=== PATIENT | female | born 1945 | race Caucasian/White ===

== ENCOUNTER 2016-10-31 09:00 | Outpatient (RCR) | payer MEDICARE ==
--- OUTSIDE RECORDS SUMMARY | 2016-08-05 10:16 | XMS REPORT | Continuity of Care Document ---
Author Author [facility] Organization [facility] Address Unknown Phone Unavailable Allergies Active Description Code Type Severity Reaction Onset Reported/Identified Relationship to Patient Clinical Status Yes No Known Drug Allergies [id number] Drug Allergy Unknown N/ A 11/24/2014 Medications Problems Date Dx Coded Attending Type Code Diagnosis Diagnosed By 12/15/2014 NWAGWU, ISIDORE O IT DESKTOP SUPPORT TECHNICIAN Ot 272.4 12/15/2014 NWAGWU, ISIDORE O IT DESKTOP SUPPORT TECHNICIAN Ot 401.9 12/15/2014 NWAGWU, ISIDORE O IT DESKTOP SUPPORT TECHNICIAN Ot 786.09 12/22/2014 NWAGWU, ISIDORE O IT DESKTOP SUPPORT TECHNICIAN Ot 272.4 12/22/2014 NWAGWU, ISIDORE O IT DESKTOP SUPPORT TECHNICIAN Ot 401.9 12/22/2014 NWAGWU, ISIDORE O IT DESKTOP SUPPORT TECHNICIAN Ot 786.09 07/20/2015 NWAGWU, ISIDORE O IT DESKTOP SUPPORT TECHNICIAN Ot 272.4 07/20/2015 NWAGWU, ISIDORE O IT DESKTOP SUPPORT TECHNICIAN Ot 401.9 07/20/2015 NWAGWU, ISIDORE O IT DESKTOP SUPPORT TECHNICIAN Ot 786.09 07/21/2015 DUSTIN CARRERO E IT DESKTOP SUPPORT TECHNICIAN Ot G47.33 07/21/2015 DUSTIN CARRERO IT DESKTOP SUPPORT TECHNICIAN Ot G47.61 08/09/2015 DUSTIN CARRERO E IT DESKTOP SUPPORT TECHNICIAN Ot G47.33 08/17/2015 DUSTIN CARRERO IT DESKTOP SUPPORT TECHNICIAN Ot G47.33 08/19/2015 DUSTIN CARRERO IT DESKTOP SUPPORT TECHNICIAN Ot G47.33 Procedures Results Encounters ACCT No. Visit Date/Time Discharge Status Pt. Type Provider Facility Loc./Unit Complaint [id number] 08/08/2015 21:30:00 2015 06:10:00 DIS Outpatient DUSTIN CARRERO IT DESKTOP SUPPORT TECHNICIAN [facility] SLEEP [id number] 07/20/2015 20:20:00 2015 07:00:00 DIS Outpatient DUSTIN CARRERO APRN [facility] SLEEP [id number] 11/24/2014 11:52:00 2014 23:59:59 CLS Outpatient RILEY WILSON APRN [facility] CARD
== END 2016-11-03 | disposition home or self-care (01) ==
LOC: PULM 09:00
PROVIDERS: ATTEND Nurse Practitioner Family
DX: R94.2 Abnormal results of pulmonary function studies (principal); R06.02 Shortness of breath
CPT/HCPCS: 94799; 99211

== ENCOUNTER 2016-11-12 11:33 | Outpatient (RCR) | payer MEDICARE | END 2017-02-10 | disposition home or self-care (01) | LOC: PULM 11:33 | PROVIDERS: ATTEND Nurse Practitioner Family | DX: R94.2 Abnormal results of pulmonary function studies (principal); R06.02 Shortness of breath ==

== ENCOUNTER 2017-12-10 03:08 | Emergency (ER) | payer MEDICARE ==
[~2017-12-10] VITALS: Ht 154.9 cm; Wt 84.4 kg
[2017-12-10] MEDS ORDERED: OMEP20CA12 (03:43)
[2017-12-10] MEDS ORDERED: LEVO5TAB12 (03:43)
[2017-12-10] MEDS ORDERED: CHLO473M (03:43)
[2017-12-10] MEDS ORDERED: MONT10TA24 (03:43)
[2017-12-10] MEDS ORDERED: BUPR150T9 (03:43)
[2017-12-10] MEDS ORDERED: LEVO50TA6 (03:43)
[2017-12-10] MEDS ORDERED: SIMV20TA3 (03:43)
[2017-12-10] MEDS ORDERED: UMEC62.5 (03:43)
[2017-12-10] MEDS ORDERED: FLUT1AER (03:43)
[2017-12-10] MEDS ORDERED: FLUT16SP22 (03:43)
--- NOTE | 2017-12-10 03:45 | ED General ---
General Chief Complaint: Nasal Problems Stated Complaint: NOSE BLEED Nursing Triage Note: Pt reports nosebleed beginning at 0200. This is 2nd nosebleed this week. Pt has bleeding controlled with ice posterior neck and holding pressure to nose. Pt hx HTN and did not take her meds Friday. Nursing Sepsis Screen: No Definite Risk Source of Information: Patient Exam Limitations: No Limitations History of Present Illness Date Seen by Provider: Dec 10, 2017 Time Seen by Provider: 03:19 Initial Comments This 72-year-old woman presents to the emergency room with complaints of right- sided nosebleed since 02:00. She had a nosebleed earlier in the week as well. Patient denies any anticoagulant use but she does take a baby aspirin daily. She also uses CPAP which is humidified. She has been applying pressure and ice. Bleeding actually stopped by the time of my assessment. Patient does admit she has not taken her blood pressure medications for the past 2 days and is presently hypertensive. Allergies and Home Medications Allergies Coded Allergies: amoxicillin (Verified Adverse Reaction, Unknown, 12/10/17) clavulanic acid (Verified Adverse Reaction, Unknown, 12/10/17) Uncoded Allergies: PENICILLIN (Adverse Reaction, Unknown, 12/10/17) SULFA (Adverse Reaction, Unknown, 12/10/17) TETANUS (Adverse Reaction, Unknown, 12/10/17) Patient Home Medication List Home Medication List Reviewed: Yes Review of Systems Constitutional: no symptoms reported EENTM: see HPI Respiratory: no symptoms reported Cardiovascular: see HPI Gastrointestinal: no symptoms reported Genitourinary: no symptoms reported : No Musculoskeletal: no symptoms reported Skin: no symptoms reported Psychiatric/Neurological: No Symptoms Reported Hematologic/Lymphatic: No Symptoms Reported Past Vexnegh-Abcbkq-Vnnnmq Hx Past Med/Social Hx: Reviewed and Corrections made Patient Social History Alcohol Use: Denies Use Recreational Drug Use: No Smoking Status: Unknown if Ever Smoked Former Smoker, Quit: Dec 30, 2013 2nd Hand Smoke Exposure: No Recent Foreign Travel: No Contact w/Someone Who Travel: No Recent Infectious Disease Expo: No Recent Hopitalizations: No Seasonal Allergies Seasonal Allergies: Yes Past Medical History Surgeries: Yes Appendectomy, Gallbladder, Thyroidectomy Respiratory: Yes Sleep Apnea, COPD Cardiac: Yes High Cholesterol, Hypertension Neurological: No : No Reproductive Disorders: No Genitourinary: No Gastrointestinal: No Musculoskeletal: No Endocrine: Yes Hypothyroidsim Cancer: No Psychosocial: Yes Anxiety, Depression Physical Exam Vital Signs Vital Signs - First Documented 12/10/17 03:19 Temp 97.5 Pulse 75 Resp 20 B/P (MAP) 176/95 (122) Pulse Ox 95 O2 Delivery Room Air Capillary Refill : Less Than 3 Seconds Height, Weight, BMI Height: 5'1.00" Weight: 186lbs. oz. 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 Decision time for Depature: 03:40 Referrals: NICCI RAZO MD (PCP/Family) Primary Care Physician Patient Instructions: Nosebleeds (DC) Add. Discharge Instructions: If bleeding returns squirt 4 squirts of Afrin (oxymetazoline) into each nostril and apply direct pressure for 20 minutes. If this does not resolve bleeding, return to the emergency room. Consider having Dr. Zavala evaluate your nose to determine if cautery is appropriate. Take your blood pressure medication immediately upon returning home. Hold aspirin for 3 or 4 days as well. All discharge instructions reviewed with patient and/or family. Voiced understanding. Copy Copies To 1: NICCI RAZO MD, JOSHUA T MD Dec 10, 2017 03:45
[2017-12-10 03:55] VITALS: BP 144/104
== END 2017-12-10 03:55 | disposition home or self-care (01) ==
LOC: EDUNIT# 03:08 → ER 03:09
DX: R04.0 Epistaxis (principal); I16.0 Hypertensive urgency; I10 Essential (primary) hypertension; G47.30 Sleep apnea, unspecified; J44.9 Chronic obstructive pulmonary disease, unspecified; E78.00 Pure hypercholesterolemia, unspecified; E03.9 Hypothyroidism, unspecified; F41.9 Anxiety disorder, unspecified; F32.9 Major depressive disorder, single episode, unspecified; Z88.0 Allergy status to penicillin; Z88.8 Allergy status to other drugs, medicaments and biological substances; Z88.2 Allergy status to sulfonamides; Z88.7 Allergy status to serum and vaccine; Z79.82 Long term (current) use of aspirin; Z91.14 Patient's other noncompliance with medication regimen; Z87.891 Personal history of nicotine dependence; Z90.89 Acquired absence of other organs
CPT/HCPCS: 99283

== ENCOUNTER 2017-12-25 10:00 | Outpatient (RCR) | payer MEDICARE ==
[2017-09-29 10:41] VITALS: BP 133/60
[2017-12-23 10:05] VITALS: BP 122/40
[2017-12-23 10:50] VITALS: BP 130/40
[~2017-12-25] VITALS: Ht 154.9 cm; Wt 87.1 kg
[~2017-12-25 10:00] MED LIST: BUPR150T9; CHLO473M; FLUT16SP22; FLUT1AER; LEVO50TA6; LEVO5TAB12; MONT10TA24; OMEP20CA12; SIMV20TA3; UMEC62.5
[2017-12-25 10:10] VITALS: BP 148/50
[2017-12-25 11:10] VITALS: BP 150/80
== END 2017-12-28 | disposition home or self-care (01) ==
LOC: PULM 10:00
PROVIDERS: ATTEND Nurse Practitioner Family
DX: R94.2 Abnormal results of pulmonary function studies (principal); R06.09 Other forms of dyspnea

== ENCOUNTER → 2018-02-03 | Outpatient (CLI) | payer MEDICARE ==
[~2018-02-03] MED LIST changes: +CATHETER FLUSH 10 ML SYR IV PRN; +REGADENOSON 0.4 MG/5 ML SYR (LEXISCAN) IV ONE
[2018-02-03 09:20] VITALS: BP 137/89
[2018-02-03 09:22] VITALS: BP 141/65
--- NOTE | 2018-02-04 09:31 | STRESS TEST ---
DATE OF SERVICE: 02/03/2018 RESTING AND POST REGADENOSON TECHNETIUM-99M TETROFOSMIN SPECT CT IMAGING ORDERING PHYSICIAN: Patti Smith APRN. PRIMARY PHYSICIAN: Dr. Martinez. CLINICAL DIAGNOSIS: Shortness of breath. Baseline images were carried out after injection of 10.92 mCi of technetium-99m Tetrofosmin. This was followed by 0.4 mg regadenoson and 31.7 mCi of technetium-99m Tetrofosmin for stress imaging. The electrocardiogram showed sinus rhythm. There was baseline artifact. There did not appear to be significant electrocardiographic changes. She noted some shortness of breath and mild anxiety following regadenoson infusion, which resolved in a few minutes. Review of images at rest and following stress does not indicate any significant perfusion defects consistent with significant myocardial ischemia or infarction. Gated images show normal global left ventricular systolic function, normal regional wall motion. Left ventricular ejection fraction is calculated to be 83%. CONCLUSIONS: 1. No evidence of significant myocardial ischemia or infarction on this study. 2. Normal regional wall motion. 3. Normal to hyperdynamic left ventricular systolic function with a calculated ejection fraction of 83%. Job ID: [id number] DocumentID: [id number] Dictated Date: 02/04/2018 09:09:57 Surg Physician Asst Date: 02/04/2018 09:30:00 Dictated By: GERARDO ALONZO MD, MA, FACP, FACC,
== END ==
LOC: CARD 07:19
PROVIDERS: ATTEND Nurse Practitioner Family
DX: R06.09 Other forms of dyspnea (principal); E78.5 Hyperlipidemia, unspecified; I10 Essential (primary) hypertension; G47.33 Obstructive sleep apnea (adult) (pediatric); J43.9 Emphysema, unspecified
CPT/HCPCS: 78452; 93017

== ENCOUNTER → 2018-03-20 | Outpatient (CLI) | payer MEDICARE ==
[~2018-03-20] MED LIST changes: -CATHETER FLUSH 10 ML SYR IV PRN; -REGADENOSON 0.4 MG/5 ML SYR (LEXISCAN) IV ONE
== END ==
LOC: CARD 08:42
PROVIDERS: ATTEND Nurse Practitioner Family
DX: I10 Essential (primary) hypertension (principal); R06.09 Other forms of dyspnea; E78.5 Hyperlipidemia, unspecified; G47.33 Obstructive sleep apnea (adult) (pediatric); J43.9 Emphysema, unspecified
CPT/HCPCS: 93306

== ENCOUNTER 2018-04-02 10:00 | Outpatient (RCR) | payer MEDICARE ==
[2018-01-01 10:00] VITALS: BP 106/58
[2018-01-01 11:00] VITALS: BP 120/58
[2018-01-06 10:10] VITALS: BP 140/64
[2018-01-06 10:55] VITALS: BP 120/68
[2018-01-08 10:00] VITALS: BP 170/65
[2018-01-08 11:00] VITALS: BP 114/76
[2018-01-15 10:13] VITALS: BP 160/78
[2018-01-15 11:14] VITALS: BP 130/80
[2018-01-20 10:30] VITALS: BP 147/70
[2018-01-20 10:55] VITALS: BP 130/74
[2018-01-22 10:17] VITALS: BP 140/60
[2018-01-22 11:05] VITALS: BP 140/60
[2018-01-27 10:35] VITALS: BP 120/58
[2018-01-27 11:05] VITALS: BP 140/60
[2018-01-29 10:18] VITALS: BP 160/80
[2018-01-29 11:15] VITALS: BP 140/60
[2018-02-10 10:18] VITALS: BP 163/69
[2018-02-10 10:20] VITALS: BP 163/40
[2018-02-10 11:13] VITALS: BP 122/40
[2018-02-12 10:18] VITALS: BP 131/80
[2018-02-12 11:20] VITALS: BP 141/56
[2018-02-17 10:10] VITALS: BP 130/40
[2018-02-17 11:20] VITALS: BP 130/40
[2018-02-19 10:05] VITALS: BP 150/58
[2018-02-19 11:00] VITALS: BP 120/70
[2018-02-24 10:13] VITALS: BP 140/70
[2018-02-24 11:03] VITALS: BP 136/52
[2018-02-26 09:50] VITALS: BP 120/60
[2018-02-26 11:00] VITALS: BP 138/62
[2018-03-10 10:00] VITALS: BP 150/60
[2018-03-10 10:56] VITALS: BP 115/40
[2018-03-12 10:15] VITALS: BP 150/70
[2018-03-12 11:06] VITALS: BP 140/40
[2018-03-19 10:00] VITALS: BP 135/70
[2018-03-19 11:13] VITALS: BP 148/82
[2018-03-24 10:10] VITALS: BP 128/72
[2018-03-24 10:18] VITALS: BP 138/70
[2018-03-26 11:10] VITALS: BP 128/82
[2018-03-31 10:30] VITALS: BP 130/70
[2018-03-31 11:25] VITALS: BP 130/70
[2018-04-02 10:10] VITALS: BP 120/80
[2018-04-02 11:13] VITALS: BP 140/70
== END 2018-04-06 | disposition home or self-care (01) ==
LOC: PULM 10:00
PROVIDERS: ATTEND Nurse Practitioner Family
DX: R94.2 Abnormal results of pulmonary function studies (principal); R06.09 Other forms of dyspnea

== ENCOUNTER → 2018-05-14 | Outpatient (CLI) | payer MEDICARE ==
[~2018-05-14] MED LIST changes: +RECEIVED CONTRAST (Hold Metformin) IV SCH
[2018-05-14 15:50] LABS: CREATININE SERUM 1.14 MG/DL (0.60-1.30)
[2018-05-14] MEDS: IOHEXOL 350 MG/ML 100 ML (OMNIPAQUE 350) VIAL IV ONE (16:24)
[2018-05-14] MEDS: NS 100 ML (IVPB) BAG IV ONE (16:25)
[2018-05-14] MEDS: CATHETER FLUSH 10 ML SYR IV PRN (16:25)
--- NOTE | 2018-05-14 17:28 | Diagnostic Imaging Report ---
PROCEDURE: CT angiography of the chest with contrast. TECHNIQUE: Multiple contiguous axial images were obtained through the chest after uneventful bolus administration of intravenous contrast. 2D reconstructed CTA MIP acquisitions were also performed. INDICATION: Dyspnea. Nocturnal hypoxemia. COMPARISON: None. FINDINGS: There is no CT evidence of acute pulmonary embolus to the first subsegmental division of the pulmonary arteries. Heart size is within normal limits. There is no large pericardial effusion. Note is made of mild calcified coronary atherosclerosis and moderate calcified and noncalcified aortic atherosclerosis. Otherwise, thoracic aorta is normal in course and caliber. No pathologically enlarged or morphologically abnormal adenopathy is seen within the mediastinum, vida, nor axilla. Lung windows show mild dependent atelectasis. There is no focal consolidation, large effusion, nor pneumothorax. Note is also made of mild scattered areas of air trapping consistent with background of mild emphysematous disease. Few benign calcified scattered granuloma are noted bilaterally. Otherwise, no suspicious pulmonary nodules or masses are seen. Osseous structures show no lytic or blastic lesions. Age-related degenerative changes of the thoracic spine are noted. There is bilateral thyromegaly. There is suggestion of hypodense nodule posteriorly on the right that measures 1.1 cm in diameter. Included portions of the upper abdomen are unremarkable. IMPRESSION: 1. No acute pulmonary embolus to the first subsegmental division of the pulmonary arteries. 2. No other acute cardiopulmonary process identified. 3. Background of mild emphysematous disease. 4. Calcified aortic and coronary atherosclerosis. 5. Thyromegaly with possible hypodense nodule on the right. Correlation with dedicated thyroid sonogram is recommended and could be performed on a nonemergent basis. Dictated by: Dictated on workstation # [id number]
== END ==
LOC: RAD 15:17
PROVIDERS: ATTEND Nurse Practitioner Family
DX: J43.9 Emphysema, unspecified (principal); I25.10 Atherosclerotic heart disease of native coronary artery without angina pectoris; I70.0 Atherosclerosis of aorta; E01.0 Iodine-deficiency related diffuse (endemic) goiter; G47.33 Obstructive sleep apnea (adult) (pediatric); J30.1 Allergic rhinitis due to pollen; G47.34 Idiopathic sleep related nonobstructive alveolar hypoventilation
CPT/HCPCS: 36415; 71275; 82565; 84520

== ENCOUNTER 2018-06-18 10:00 | Outpatient (RCR) | payer MEDICARE ==
[2018-04-14 10:00] VITALS: BP 143/50
[2018-04-14 11:05] VITALS: BP 167/60
[2018-04-28 10:00] VITALS: BP 120/62
[2018-04-28 11:00] VITALS: BP 128/62
[2018-04-30 10:00] VITALS: BP 140/70
[2018-04-30 11:10] VITALS: BP 122/52
[2018-05-12 10:05] VITALS: BP 145/60
[2018-05-12 11:00] VITALS: BP 150/60
[2018-05-14 10:07] VITALS: BP 140/70
[2018-06-02 10:00] VITALS: BP 130/62
[2018-06-02 11:54] VITALS: BP 127/50
[2018-06-04 10:00] VITALS: BP 137/70
[2018-06-04 11:16] VITALS: BP 140/50
[2018-06-11 10:00] VITALS: BP 150/60
[2018-06-11 11:00] VITALS: BP 120/62
[2018-06-16 10:10] VITALS: BP 124/58
[2018-06-16 11:13] VITALS: BP 128/50
[2018-06-18 10:00] VITALS: BP 160/70
[~2018-06-18 10:00] MED LIST changes: -RECEIVED CONTRAST (Hold Metformin) IV SCH
[2018-06-18 11:00] VITALS: BP 150/58
[2018-06-23 10:10] VITALS: BP 138/81
[2018-06-23 11:15] VITALS: BP 140/80
== END 2018-07-27 | disposition home or self-care (01) ==
LOC: PULM 10:00
PROVIDERS: ATTEND Nurse Practitioner Family
DX: R94.2 Abnormal results of pulmonary function studies (principal); R06.09 Other forms of dyspnea

== ENCOUNTER 2019-01-14 01:03 | Emergency (ER) | payer MEDICARE ==
[~2019-01-14] VITALS: Ht 157.5 cm; Wt 85.7 kg
[~2019-01-14 01:03] MED LIST changes: -OMEP20CA12; +OMEP20CA13
[2019-01-14] MEDS ORDERED: NS IV 1000 ML 1,000 ML IV SCH (01:25)
[2019-01-14] MEDS ORDERED: ONDANSETRON 4 MG/2 ML (SDV) Z0FRAN IVP ONE (01:30)
[2019-01-14] MEDS ORDERED: KETOROLAC 30 MG/ML VIAL IVP ONE (01:30)
[2019-01-14 01:32] LABS: CLARITY,URINE SLIGHTLY CLOUDY; GLUCOSE, URINE (UA) NEGATIVE (NEGATIVE); KETONES,URINE NEGATIVE (NEGATIVE); LEUKOCYTE ESTERASE ,URINE 3+ (NEGATIVE); NITRITE,URINE POSITIVE (NEGATIVE); PH,URINE 6.5 (5-9); PROTEIN,URINE 2+ (NEGATIVE); UROBILINOGEN,URINE 8 MG/DL (NORMAL)
[2019-01-14 01:32] LABS: BASOPHILS % (AUTO) 0 % (0-10); EOSINOPHILS # (AUTO) 0.2 10^3/uL (0.0-0.3); EOSINOPHILS % (AUTO) 2 % (0-10); HEMATOCRIT 41 % (35-52); HEMOGLOBIN 13.4 G/DL (11.5-16.0); LYMPHOCYTES # (AUTO) 1.9 X 10^3 (1.0-4.0); LYMPHOCYTES % (AUTO) 22 % (12-44); MEAN CORPUSCULAR HEMOGLOBIN 31 PG (25-34); MEAN CORPUSCULAR HGB CONC 33 G/DL (32-36); MEAN CORPUSCULAR VOLUME 93 FL (80-99); MEAN PLATELET VOLUME 9.7 FL (7.4-10.4); MONOCYTES # (AUTO) 0.6 X 10^3 (0.0-1.0); MONOCYTES % (AUTO) 7 % (0-12); NEUTROPHILS # (AUTO) 6.2 X 10^3 (1.8-7.8); NEUTROPHILS % (AUTO) 69 % (42-75); PLATELET COUNT 285 10^3/uL (130-400); RED CELL DISTRIBUTION WIDTH 13.5 % (10.0-14.5)
--- NOTE | 2019-01-14 01:32 | ED Abdominal Pain ---
General Stated Complaint: POSS KIDNEY STONE Source of Information: Patient Exam Limitations: No Limitations History of Present Illness Date Seen by Provider: Jan 14, 2019 Time Seen by Provider: 01:17 Initial Comments The patient presents to the ER by private conveyance with her and chief complaint that she's having some superpubic and right flank pain. She has a history of kidney stones. She's not taken anything for the pain tonight. She is having nausea but no vomiting. She's had some chills but no objective fever. Is also having diarrhea starting tonight. Most of her symptoms started 11:00 about 2-1/2 hours prior to arrival. She took AZO for the dysuria. She sees Dr. Razo routinely. She does not history of kidney disease, coronary disease or peptic ulcer disease she's had a colonoscopy before which did not discover anything. She's had 2 C-sections and no other abdominal surgeries. No recent trauma.. She does take allergy medicine, Synthroid and omeprazole. Allergies and Home Medications Allergies Coded Allergies: amoxicillin (Verified Adverse Reaction, Unknown, 12/10/17) clavulanic acid (Verified Adverse Reaction, Unknown, 12/10/17) Uncoded Allergies: PENICILLIN (Adverse Reaction, Unknown, 12/10/17) SULFA (Adverse Reaction, Unknown, 12/10/17) TETANUS (Adverse Reaction, Unknown, 12/10/17) Patient Home Medication List Home Medication List Reviewed: Yes Review of Systems Review of Systems Constitutional: No chills, No diaphoresis EENTM: No Blurred Vision, No Double Vision Respiratory: Denies Cough, Denies Orthopnea Cardiovascular: Denies Chest Pain, Denies Edema Gastrointestinal: See HPI; Denies Abdomen Distended; Abdominal Pain; Denies Constipated; Diarrhea, Nausea, Poor Fluid Intake; Denies Vomiting Genitourinary: Denies Burning, Denies Discharge, Denies Drainage Musculoskeletal: No back pain, No joint pain Past Svzseow-Qholpi-Ppoloo Hx Patient Social History Alcohol Use: Rarely Uses Recreational Drug Use: No Smoking Status: Never a Smoker Former Smoker, Quit: Dec 30, 2013 2nd Hand Smoke Exposure: No Recent Foreign Travel: No Contact w/Someone Who Travel: No Recent Hopitalizations: No Seasonal Allergies Seasonal Allergies: Yes Past Medical History Surgeries: Yes Appendectomy, Gallbladder, Thyroidectomy Respiratory: Yes Sleep Apnea, COPD Cardiac: Yes High Cholesterol, Hypertension Neurological: No Reproductive Disorders: No Genitourinary: No Gastrointestinal: No Musculoskeletal: No Endocrine: Yes Hypothyroidsim Cancer: No Psychosocial: Yes Anxiety, Depression Physical Exam Vital Signs Vital Signs - First Documented 01/14/19 01:09 Temp 99.0 Pulse 76 Resp 17 B/P (MAP) 130/76 (94) Pulse Ox 99 O2 Delivery Room Air Capillary Refill : Height/Weight/BMI Height: 5'1.00" Weight: 198lbs. 0.8oz. 84.208936wr; 35.3 BMI Method:Stated General Appearance: WD/WN, mild distress HEENT: PERRL/EOMI, normal ENT inspection, pharynx normal Neck: non-tender, full range of motion Respiratory: normal breath sounds, no respiratory distress, no accessory muscle use Cardiovascular: normal peripheral pulses, regular rate, rhythm Peripheral Pulses: 2+ Dorsalis Pedis (R), 2+ Left Dors-Pedis (L), 2+ Radial Pulses (R), 2+ Radial Pulses (L) Gastrointestinal: normal bowel sounds, non tender, soft Extremities: normal range of motion, normal capillary refill Back: normal inspection, no CVA tenderness Neurologic/Psychiatric: alert, oriented x 3 Progress/Results/Core Measures Results/Orders Lab Results Laboratory Tests Test 01/14/19 01:15 01/14/19 01:23 Range/Units Urine Color ORANGE Urine Clarity SLIGHTLY CLOUDY Urine pH 6.5 5-9 Urine Specific [place] 1.010 L 1.016-1.022 Urine Protein 2+ H NEGATIVE Urine Glucose (UA) NEGATIVE NEGATIVE Urine Ketones NEGATIVE NEGATIVE Urine Nitrite POSITIVE H NEGATIVE Urine Bilirubin 2+ H NEGATIVE Urine Urobilinogen 8 H NORMAL MG/DL Urine Leukocyte Esterase 3+ H NEGATIVE Urine RBC (Auto) 5+ H NEGATIVE Urine RBC RARE /HPF Urine WBC 25-50 H /HPF Urine Squamous Epithelial Cells 5-10 /HPF Urine Crystals NONE /LPF Urine Bacteria TRACE /HPF Urine Casts NONE /LPF Urine Mucus NEGATIVE /LPF Urine Culture Indicated YES White Blood Count 9.0 4.3-11.0 10^3/uL Red Blood Count 4.37 4.35-5.85 10^6/uL Hemoglobin 13.4 11.5-16.0 G/DL Hematocrit 41 35-52 % Mean Corpuscular Volume 93 80-99 FL Mean Corpuscular Hemoglobin 31 25-34 PG Mean Corpuscular Hemoglobin Concent 33 32-36 G/DL Red Cell Distribution Width 13.5 10.0-14.5 % Platelet Count 285 130-400 10^3/uL Mean Platelet Volume 9.7 7.4-10.4 FL Neutrophils (%) (Auto) 69 42-75 % Lymphocytes (%) (Auto) 22 12-44 % Monocytes (%) (Auto) 7 0-12 % Eosinophils (%) (Auto) 2 0-10 % Basophils (%) (Auto) 0 0-10 % Neutrophils # (Auto) 6.2 1.8-7.8 X 10^3 Lymphocytes # (Auto) 1.9 1.0-4.0 X 10^3 Monocytes # (Auto) 0.6 0.0-1.0 X 10^3 Eosinophils # (Auto) 0.2 0.0-0.3 10^3/uL Basophils # (Auto) 0.0 0.0-0.1 10^3/uL Sodium Level 136 135-145 MMOL/L Potassium Level 3.9 3.6-5.0 MMOL/L Chloride Level 102 98-107 MMOL/L Carbon Dioxide Level 22 21-32 MMOL/L Anion Gap 12 5-14 MMOL/L Blood Urea Nitrogen 16 7-18 MG/DL Creatinine 1.15 0.60-1.30 MG/DL Estimat Glomerular Filtration Rate 46 BUN/Creatinine Ratio 14 Glucose Level 95 70-105 MG/DL Calcium Level 8.9 8.5-10.1 MG/DL Corrected Calcium 8.7 8.5-10.1 MG/DL Magnesium Level 1.8 1.6-2.4 MG/DL Total Bilirubin 0.3 0.1-1.0 MG/DL Aspartate Amino Transf (AST/SGOT) 23 5-34 U/L Alanine Aminotransferase (ALT/SGPT) 34 0-55 U/L Alkaline Phosphatase 105 40-136 U/L Total Protein 7.5 6.4-8.2 GM/DL Albumin 4.2 3.2-4.5 GM/DL My Orders Orders - SALLIE SAMUELS Cbc With Automated Diff (01/14/19 01:25) Comprehensive Metabolic Panel (01/14/19 01:25) Magnesium (01/14/19 01:25) Ua Culture If Indicated (01/14/19 01:25) Ed Iv/Invasive Line Start (01/14/19 01:25) Ns Iv 1000 Ml (Sodium Chloride 0.9%) (01/14/19 01:25) Ketorolac Injection (Toradol Injection) (01/14/19 01:30) Ondansetron Injection (Zofran Injectio (01/14/19 01:30) Urine Culture (01/14/19 01:15) Ct Abd/Pelvis Wo(Kidney Stone) (01/14/19 02:11) Ceftriaxone For Iv Use (Rocephin For I (01/14/19 02:45) Medications Given in ED Current Medications Medications Dose Ordered Sig/Liana Route Start Time Stop Time Status Last Admin Dose Admin Ceftriaxone Sodium 1000 mg/ Sterile Water 10 ml @ 200 mls/hr ONCE ONCE IV 01/14/19 02:45 01/14/19 02:47 01/14/19 02:45 200 MLS/HR Ketorolac Tromethamine 30 mg ONCE ONCE IVP 01/14/19 01:30 01/14/19 01:31 DC 01/14/19 01:45 30 MG Ondansetron HCl 8 mg ONCE ONCE IVP 01/14/19 01:30 01/14/19 01:31 DC 01/14/19 01:45 8 MG Vital Signs/I&O 01/14/19 01:09 Temp 99.0 Pulse 76 Resp 17 B/P (MAP) 130/76 (94) Pulse Ox 99 O2 Delivery Room Air Progress Progress Note #1: Time: 01:31 Progress Note Liter of fluids, Toradol, urinalysis and labs. If her urinalysis has blood in it we'll do a CT without IV contrast. Otherwise plan on a CT with IV contrast abdomen pelvis. Progress Note #2: Time: 02:49 Progress Note The patient's pain is significantly improved. After her antibiotics and fluids are complete she is ready to go home. We discussed the left renal cystic mass and that he would need to be followed up outpatient with her primary care doctor. Diagnostic Imaging Diagonstic Imaging: CT Plain Films/CT/US/NM/MRI: abdomen, pelvis Comments No evidence of nephrolithiasis or hydronephrosis. Complex cystic mass in the lower pole left kidney measuring 1.5 cm. Follow-up imaging recommended which could include a dual face CT with contrast or MRI. Diverticulosis without diverticulitis. Reviewed: Reviewed [place] Study, Reviewed by Me Departure Impression Primary Impression: UTI (urinary tract infection) Qualified Codes: N30.00 - Acute cystitis without hematuria Additional Impression: Renal mass, left Disposition: HOME, SELF-CARE Condition: Improved Departure-Patient Inst. Decision time for Depature: 02:50 Referrals: NICCI RAZO MD (PCP/Family) Primary Care Physician Patient Instructions: Urinary Tract Infection, Adult (DC) Add. Discharge Instructions: solution make up operator the antibiotics and take one capsule of Keflex twice daily for the next week. Continue to drink lots of fluids to help flush out your kidneys. Use ibuprofen 800 mg every 8 hours as needed for pain. Use Tylenol 1000 mg every 8 hours as needed for pain. Plan to follow up with your primary doctor to discuss the complex cystic mass in the left kidney. They will help you arrange further imaging as appropriate. Scripts Cephalexin (Keflex) 500 Mg Capsule 500 MG PO BID for 7 Days, #14 CAP 0 Refills Prov: SALLIE SAMUELS 01/14/19 Copy Copies To 1: NICCI RAZO MD, TITUS J Jan 14, 2019 01:31
[2019-01-14 01:42] LABS: BILIRUBIN,URINE 2+ (NEGATIVE); COLOR,URINE ORANGE; RBC,URINE RARE /HPF; WBC,URINE 25-50 /HPF
[2019-01-14 01:43] LABS: BACTERIA,URINE TRACE /HPF
[2019-01-14 01:50] LABS: ALBUMIN 4.2 GM/DL (3.2-4.5); BILIRUBIN,TOTAL 0.3 MG/DL (0.1-1.0); CALCIUM 8.9 MG/DL (8.5-10.1); CREATININE SERUM 1.15 MG/DL (0.60-1.30); MAGNESIUM 1.8 MG/DL (1.6-2.4); POTASSIUM 3.9 MMOL/L (3.6-5.0); TOTAL PROTEIN 7.5 GM/DL (6.4-8.2)
[2019-01-14] MEDS ORDERED: cefTRIAXone FOR IV USE 1,000 MG in WATER (STERILE) FOR INJECTION 10 ML IV ONE (02:45)
[2019-01-14] MEDS ORDERED: CEPH-507 PO (02:52)
[2019-01-14 03:10] VITALS: BP 131/61
--- NOTE | 2019-01-14 07:01 | Diagnostic Imaging Report ---
PROCEDURE: CT urinary tract, rule out kidney stone. TECHNIQUE: Multiple contiguous axial images were obtained through the abdomen and pelvis without the use of intravenous contrast. Auto Exposure Controls were utilized during the CT exam to meet ALARA standards for radiation dose reduction. INDICATION: Right flank pain. CORRELATION STUDY: None FINDINGS: Lung bases clear. Heart size normal. Unenhanced liver, spleen, pancreas and adrenal glands without acute abnormality. Cholecystectomy changes. Moderate aortoiliac wall calcification, nonaneurysmal. There is no evidence for nephroureterolithiasis or obstructive uropathy. There is a 1.5 cm rounded low-density mass inferior pole left kidney with somewhat complex appearance. Gastrointestinal tract demonstrates no obstruction or inflammation. No findings to suggest acute appendicitis. No abdominal ascites or free air. Colonic diverticulosis is noted. Urinary bladder unremarkable. Uterus and adnexa appearing unremarkable. Osseous structures demonstrate no acute abnormality. Degenerative changes through the lumbar spine. IMPRESSION: 1. Negative for nephroureterolithiasis or obstructive uropathy. 2. 1.5 cm complex cystic mass inferior pole left kidney. Followup imaging is recommended including post contrast CT and/or MRI. Neoplasm not excluded at this time. 3. Colonic diverticula without evidence for acute diverticulitis. A preliminary report was provided by [facility]. Dictated by: Dictated on workstation # [id number]
== END 2019-01-14 03:10 | disposition home or self-care (01) ==
LOC: EDUNIT# 01:03 → ER 01:04
DX: N39.0 Urinary tract infection, site not specified (principal); N28.89 Other specified disorders of kidney and ureter; J44.9 Chronic obstructive pulmonary disease, unspecified; G47.30 Sleep apnea, unspecified; I10 Essential (primary) hypertension; E78.00 Pure hypercholesterolemia, unspecified; E03.9 Hypothyroidism, unspecified; F41.9 Anxiety disorder, unspecified; F32.9 Major depressive disorder, single episode, unspecified; Z90.49 Acquired absence of other specified parts of digestive tract; Z88.1 Allergy status to other antibiotic agents; Z88.0 Allergy status to penicillin; Z88.2 Allergy status to sulfonamides; Z88.7 Allergy status to serum and vaccine; Z87.891 Personal history of nicotine dependence
CPT/HCPCS: 36415; 74176; 80053; 81000; 83735; 85025; 87077; 87088; 87186

== ENCOUNTER → 2019-10-19 | Outpatient (CLI) | payer MEDICARE ==
[~2019-10-19] MED LIST changes: +CEPH-507 PO; -CHLO473M; -MONT10TA24; +MONT10TA26; +NFCHLORHGL; -OMEP20CA13; +OMEP20CA18; +SIMV20TA26; -SIMV20TA3
--- NOTE | 2019-10-19 15:31 | Diagnostic Imaging Report ---
INDICATION: Nicotine dependence, 96 pack year history of smoking. Quit smoking 6 years prior. TECHNIQUE: Multiple contiguous axial images were obtained through the chest without the use of intravenous contrast. All CT scans use one or more of the following dose optimizing techniques: automated exposure control, MA and/or KvP adjustment based on a patient size and exam type, or iterative reconstruction. Sagittal and coronal images reviewed. COMPARISON: 01/14/2019 FINDINGS: No significant adenopathy within the chest. Scattered vascular calcifications, including within the coronary arteries. No aneurysmal dilatation of the thoracic aorta. The heart is within normal limits in size. No significant pericardial effusion. No pleural effusion. Tiny hiatal hernia. No pneumothorax. Calcified granuloma within the left upper lobe. Additional scattered sub-4 mm bilateral pulmonary nodules are present. Dominant pulmonary nodule within the right upper lobe, which is calcified. Minimal background centrilobular emphysematous changes. The trachea is patent. Diffusely decreased density of the liver. Otherwise, the minimally visualized upper abdomen is unremarkable. Scattered osseous degenerative changes without acute osseous abnormality. IMPRESSION: Bilateral sub-4 mm noncalcified pulmonary nodules. These are indeterminate, though favored to relate to noncalcified granuloma. These have not significantly changed since the prior exam. Recommend a follow-up CT of the chest in one year to ensure stability. Evidence of chronic granulomatous disease. Minimal background emphysematous changes. Lung RADS category 2S: Benign appearance or behavior Modifier: S: Minimal background emphysematous changes. Follow-up: Low-dose CT of the chest is recommended in 12 months. Dictated by: Dictated on workstation # [id number]
== END ==
LOC: RAD 13:33
PROVIDERS: ATTEND Nurse Practitioner Family
DX: Z12.2 Encounter for screening for malignant neoplasm of respiratory organs (principal); R91.8 Other nonspecific abnormal finding of lung field; Z87.891 Personal history of nicotine dependence

== ENCOUNTER 2020-04-18 08:09 | Day surgery (SDC) | payer MEDICARE ==
[~2020-04-18] VITALS: Ht 154.9 cm; Wt 92.3 kg
[2020-04-18] VITALS (10 sets, daily range): BP systolic 101–148; BP diastolic 49–73
[2020-04-18] MEDS ORDERED: NS IV 1000 ML 1,000 ML IV SCH ×2 (08:15→12:34)
[2020-04-18] MEDS ORDERED: NS IV 1000 ML 1,000 ML ONE (08:19)
[2020-04-18] MEDS ORDERED: LIDOCAINE 1% INJ 20 ML 20 ML VIAL ONE (08:19)
[2020-04-18] MEDS ORDERED: HEParin (CATH LAB) 2,000 ML IV ONE (08:19)
[2020-04-18 08:51] LABS: HEMOGLOBIN 13.4 g/dL (11.5-16.0); MEAN PLATELET VOLUME 9.3 fL (9.0-12.2); WHITE BLOOD COUNT 5.6 10^3/uL (4.3-11.0)
[2020-04-18 09:06] LABS: INR 0.9 (0.8-1.4)
[2020-04-18 09:12] LABS: ALBUMIN 4.2 GM/DL (3.2-4.5); BILIRUBIN,TOTAL 0.7 MG/DL (0.1-1.0); CALCIUM 9.4 MG/DL (8.5-10.1); CREATININE SERUM 1.27 MG/DL (0.60-1.30); POTASSIUM 3.6 MMOL/L (3.6-5.0); TOTAL PROTEIN 7.7 GM/DL (6.4-8.2)
[2020-04-18] MEDS ORDERED: OMEP20CA18 PO (09:25)
[2020-04-18] MEDS ORDERED: BUPR150T14 PO (09:25)
[2020-04-18] MEDS ORDERED: FLUO20CA42 PO (09:25)
[2020-04-18] MEDS ORDERED: SIMV20TA26 PO (09:25)
[2020-04-18] MEDS ORDERED: LEVO50TA6 PO (09:25)
[2020-04-18] MEDS ORDERED: UMEC62.5 IH (09:25)
[2020-04-18] MEDS ORDERED: FURO20TA4 PO (09:25)
[2020-04-18] MEDS ORDERED: ASPI-1238 PO (09:25)
[2020-04-18] MEDS ORDERED: LEVO5TAB12 PO (09:25)
[2020-04-18] MEDS ORDERED: CETI10TA17 PO (09:25)
[2020-04-18] MEDS ORDERED: FLUT1BLS IH (09:25)
[2020-04-18] MEDS ORDERED: TELM40TA6 PO (09:25)
[2020-04-18] MEDS ORDERED: RT-ALBUINH IH (09:25)
[2020-04-18] MEDS ORDERED: FLUT15.845 NS (09:25)
[2020-04-18] MEDS ORDERED: MONT10TA26 PO (09:25)
[2020-04-18] MEDS ORDERED: fentaNYL INJECTION 100 MCG/2 ML AMP ONE (11:03)
[2020-04-18] MEDS ORDERED: MIDAZOLAM 5 MG/5 ML (VERSED) VIAL ONE (11:03)
--- NOTE | 2020-04-18 12:33 | Cardiac Procedure Note-CS/ASA ---
Pre-Procedure Note Pre-Op Procedure Note H&P Reviewed The H&P was reviewed, patient examined and no changes noted. Date H&P Reviewed: Apr 18, 2020 Time H&P Reviewed: 11:50 Conscious Sedation Pre-Proced Time 11:50 ASA Score 3 For ASA 3 and 4: Consider anesthesia and medical clearance. Also, for patients with a history of failed moderate sedation consider anesthesia. Airway Lungs Heart ASA score ASA 1: a normal healthy patient ASA 2: a patient with a mild systemic disease (mid diabetes, controlled hypertension, obesity ASA 3: a patient with a severe systemic disease that limits activity (angina, COPD, prior Myocardial infarction) ASA 4: a patient with an incapacitating disease that is a constant threat to life (CHF, renal failure) ASA 5: a moribund patient not expected to survive 24 hrs. (ruptured aneurysm) ASA 6: a declared brain- patient whose organs are being harvested. For emergent operations, add the letter E after the classification Mallampati Classification Grade 3 Sedation Plan Analgesia, Amnesia, Plan communicated to team members, Discussed options with patient/fam, Discussed risks with patient/fam The patient is an appropriate candidate to undergo the planned procedure, sedation, and anesthesia. The patient immediately re-assessed prior to indication. GERARDO ALONZO MD FACP FAC CCDS Apr 18, 2020 12:33
--- NOTE | 2020-04-18 12:36 | Discharge Inst-Cardiology ---
Discharge Inst-Cardiac Discharge Medications Continued Medications: Albuterol Sulfate (Proair Hfa) 1 Puff Puff 2 PUFF IH QID PRN for WHEEZING, PUFF 1 PUFF = 90 MCG Aspirin (Aspirin EC) 81 Mg Tablet.dr 81 MG PO, TAB Bupropion HCl (Bupropion HCl Sr) 150 Mg Tablet.er 150 MG PO TID, TAB Cetirizine HCl (Cetirizine HCl) 10 Mg Tablet 10 MG PO DAILY, TAB Fluoxetine HCl (Prozac) 20 Mg Capsule 20 MG PO DAILY, CAP Fluticasone Propionate (Fluticasone Propionate) 15.8 Ml Alexander.susp 15.8 ML NS HS, SPRAY Fluticasone/Vilanterol (Breo Ellipta 200-25 Mcg INH) 1 Each Blst.w.dev 1 EACH IH DAILY Furosemide (Furosemide) 20 Mg Tablet 20 MG PO DAILY, TAB Levocetirizine Dihydrochloride (Levocetirizine Dihydrochloride) 5 Mg Tablet 5 MG PO DAILY, TAB Levothyroxine Sodium (Levothyroxine Sodium) 50 Mcg Tablet 50 MCG PO DAILY, TAB Montelukast Sodium (Montelukast Sodium) 10 Mg Tablet 10 MG PO DAILY, TAB Omeprazole (Omeprazole) 20 Mg Capsule.dr 20 MG PO DAILY, CAP Simvastatin (Simvastatin) 20 Mg Tablet 20 MG PO HS, TAB Telmisartan (Telmisartan) 40 Mg Tablet 80 MG PO DAILY, TAB Umeclidinium [place] (Incruse Ellipta) 62.5 Mcg Blst.w.dev 1 PUFF IH DAILY GERARDO ALONZO MD [facility]S Apr 18, 2020 12:36
--- NOTE | 2020-04-18 12:38 | Discharge Inst-Post CATH ---
Discharge Inst-CATH/EP Post Cardiac Cath/EP D/C Inst Follow Up/Plan F/u with Dr Farrell in 2 weeks ACTIVITY * Go Home directly and rest. * Limit activity of the leg (or wrist if it was used) for 7 days including aerobics, swimming, jogging, bicycling, etc. * Restrict stair-climbing for 7 days if possible, if not, climb up with your n on-cath leg, then bring together on the same step. * Avoid lifting, pushing, pulling or excessive movement of the affected ex tremity for 7 days. * Customary sexual activity may be resumed after 2 days-use caution not to use a position that strains or causes pain to the affected extremity. * No driving for 24 hours. * NO SMOKING. * Avoid straining for bowel movements for 7 days. * Gentle walking on level ground is allowed. * Returning to work will depend on the type of procedure and the results. Your doctor will discuss this with you. CALL YOUR DOCTOR FOR ANY OF THE FOLLOWING: *If bleeding from the puncture site occurs- Apply gentle pressure to site with clean cloth and call your doctor or EMS. * If a knot or lump forms under the skin, increases in size, or causes pain. * If bruising appears to be worsening or moving further down your leg instead of disappearing. * Temperature above 101 F. CARE OF YOUR GROIN INCISION; * Bruising or purple discoloration of the skin near the puncture site is common. * You may shower only, no bathtub bathing for 5 days. Be careful to avoid slipping as your leg may feel stiff. * If a closure device was used on your femoral artery, please see the attached guide regarding care of the device and your leg. * Leave dressing on FOR 24 hours. CARE OF YOUR WRIST INCISION; * Bruising or purple discoloration of the skin near the puncture site is common. * You may shower. * DO NOT submerge wrist. * Leave dressing on FOR 24 hours. GERARDO FARRELL MD [facility]S Apr 18, 2020 12:38
[2020-04-18] MEDS ORDERED: PATIENT MAY USE OWN MEDS, ALL PO SCH (12:45)
--- NOTE | 2020-04-18 12:47 | CARDIAC CATHETERIZATION ---
DATE OF SERVICE: 04/18/2020 CARDIAC CATHETERIZATION REPORT INDICATIONS: The patient is a 74-year-old lady, who has multiple coronary artery disease risk factors and who has been experiencing chest discomfort that is suggestive of new onset of angina and these symptoms have been unstable. She herself has been worried that these symptoms are related to coronary artery blockages. Cardiac catheterization was carried out after having obtained an informed consent. DESCRIPTION OF PROCEDURE: She was brought to the cardiac catheterization laboratory in a fasting state. Right groin was prepared and draped in the usual sterile fashion. Lidocaine 1% was used for local anesthesia. Modified Seldinger technique was used to advance a 5-Cameroonian sheath in the right femoral artery, 5-Cameroonian JL4 catheter was used for left coronary angiography, 5-Cam[place]onian JR4 catheter was used for right coronary angiography, 5-Cam[place]onian pigtail catheter was used for left heart catheterization and left ventricular coronary angiography. Angiography of the right femoral artery was carried out through the sheath and Mynx was used to achieve hemostasis following sheath removal. HEMODYNAMICS: Left ventricular end-diastolic pressure following coronary angiography was 13 mmHg. There was no significant pressure gradient on pullback across the aortic valve. Ascending aortic pressure was 129/61 with a mean of 69 mmHg. CORONARY ANGIOGRAPHY: Left main coronary artery, left anterior descending artery, left circumflex artery, right coronary artery do not exhibit angiographically significant disease. Right coronary artery is dominant. LEFT VENTRICULAR ANGIOGRAPHY: Left ventricular angiography was carried out in the right anterior oblique projection. Global left ventricular systolic function normal. No regional wall motion abnormalities seen. Left ventricular ejection fraction approximately 60%. CONCLUSIONS: 1. No angiographically significant coronary artery disease. 2. Normal regional wall motion. 3. Left ventricular end-diastolic pressure at the top limit of normal to minimally elevated. DISCUSSION AND RECOMMENDATIONS: Based on results of the study, chest discomfort does not appear to be of coronary or cardiac origin. Continuing risk factor modification is advised. Outpatient followup is advised. Job ID: [id number] DocumentID: [id number] Dictated Date: 04/18/2020 12:32:21 Tree Faller Date: 04/18/2020 12:46:05 Dictated By: GERARDO ALONZO MD, MA, FACP, FACC,
== END 2020-04-18 16:45 | disposition home or self-care (01) ==
LOC: CATH 08:09
PROVIDERS: ATTEND Internal Medicine Cardiovascular Disease
DX: R07.89 Other chest pain (principal); I10 Essential (primary) hypertension; E78.5 Hyperlipidemia, unspecified; F41.9 Anxiety disorder, unspecified; F32.9 Major depressive disorder, single episode, unspecified; G47.33 Obstructive sleep apnea (adult) (pediatric); I65.23 Occlusion and stenosis of bilateral carotid arteries; I25.10 Atherosclerotic heart disease of native coronary artery without angina pectoris; J44.9 Chronic obstructive pulmonary disease, unspecified; E66.9 Obesity, unspecified; Z68.38 Body mass index [BMI] 38.0-38.9, adult; Z79.82 Long term (current) use of aspirin; Z79.899 Other long term (current) drug therapy; Z88.0 Allergy status to penicillin; Z88.1 Allergy status to other antibiotic agents; Z88.7 Allergy status to serum and vaccine; Z88.2 Allergy status to sulfonamides; Z88.8 Allergy status to other drugs, medicaments and biological substances; Z90.49 Acquired absence of other specified parts of digestive tract; Z87.891 Personal history of nicotine dependence; Z83.3 Family history of diabetes mellitus
CPT/HCPCS: 80053; 80061; 85027; 85610; 85730; 87081; 93306; 93458; C1760; C1894; 36415

== ENCOUNTER → 2020-06-08 | Outpatient (CLI) | payer MEDICARE ==
[~2020-06-08] MED LIST changes: +ASPI-1238 PO; +BUPR150T14 PO; +CETI10TA17 PO; +FLUO20CA42 PO; +FLUT15.845 NS; +FLUT1BLS IH; +FURO20TA4 PO; +LEVO50TA6 PO; +LEVO5TAB12 PO; -MONT10TA26; +MONT10TA97; +MONT10TA97 PO; +OMEP20CA18 PO; +RT-ALBUINH IH; +RT-ALBUTEROL SULF 2.5 MG/3 ML PRE-MIX VIAL INH ONE; +SIMV20TA26 PO; +TELM40TA6 PO; +UMEC62.5 IH
[2020-06-08 08:58] LABS: CREATININE SERUM 1.33 MG/DL (0.60-1.30)
--- NOTE | 2020-06-08 13:59 | Diagnostic Imaging Report ---
PROCEDURE: US Venous Lower Ext Niko. TECHNIQUE: Multiple real-time grayscale images were obtained over the lower extremities in various projections, bilaterally. Additional duplex Doppler and color Doppler images were also obtained. INDICATION: Leg pain and swelling There are no prior studies available for comparison. FINDINGS: The deep venous system of each lower extremity was visualized from the distal common femoral vein to the popliteal vein. There was good flow and compressibility at all levels. There is no evidence for deep venous thrombosis. IMPRESSION: Negative bilateral lower extremities for deep venous thrombosis. Dictated by: Dictated on workstation # [id number]
== END ==
LOC: RT 09:45
PROVIDERS: ATTEND Nurse Practitioner Family
DX: Z03.89 Encounter for observation for other suspected diseases and conditions ruled out (principal); M79.89 Other specified soft tissue disorders; M79.609 Pain in unspecified limb; R06.00 Dyspnea, unspecified; R22.40 Localized swelling, mass and lump, unspecified lower limb
CPT/HCPCS: 36415; 82565; 84520; 93970; 94060; 94726; 94729

== ENCOUNTER → 2020-06-09 | Outpatient (CLI) | payer MEDICARE ==
[~2020-06-09] MED LIST changes: +CATHETER FLUSH 10 ML SYR IV PRN; -RT-ALBUTEROL SULF 2.5 MG/3 ML PRE-MIX VIAL INH ONE
--- NOTE | 2020-06-09 08:59 | Diagnostic Imaging Report ---
EXAMINATION: LUNG SCAN PERFUSION CLINICAL INDICATION: Shortness of breath. Concern for pulmonary embolism. TECHNIQUE: Following the intravenous administration of 5.34 mCi of Tc 99m MAA, 8 standard planar images of the lungs were acquired. Perfusion imaging was not performed. COMPARISON: No recent chest imaging is available for comparison. FINDINGS: Perfusion imaging demonstrates homogeneous perfusion noted throughout both lungs, with normal lung contours. No segmental or subsegmental defect is identified. IMPRESSION: Homogeneous perfusion of the lungs, without findings to suggest pulmonary embolism. Dictated by: Dictated on workstation # [id number]
--- NOTE | 2020-06-09 09:47 | Diagnostic Imaging Report ---
EXAMINATION: Chest 2 views. HISTORY: COPD. COMPARISON: 10/19/2019. FINDINGS: The lung volumes are hyperinflated. Prominent interstitial markings are noted in the mid and lower lungs bilaterally. No focal consolidation is seen. Scattered granulomas are again noted in the lungs. No large pleural effusion or pneumothorax is seen. The cardiomediastinal silhouette is normal in size and contour. There is calcified aortic atherosclerotic plaque. No acute osseous abnormality is seen. IMPRESSION: 1. Hyperinflated lungs with prominent interstitial markings in the mid and lower lungs bilaterally, likely representing the patient's history of COPD. No focal consolidations. No pleural effusion. Dictated by: Dictated on workstation # [id number]
== END ==
LOC: CARD 08:16
PROVIDERS: ATTEND Nurse Practitioner Family
DX: Z03.89 Encounter for observation for other suspected diseases and conditions ruled out (principal); J44.9 Chronic obstructive pulmonary disease, unspecified; M79.89 Other specified soft tissue disorders; M79.609 Pain in unspecified limb; R91.8 Other nonspecific abnormal finding of lung field
CPT/HCPCS: 71046; 78580; A9540

== ENCOUNTER → 2020-06-16 | Outpatient (CLI) | payer MEDICARE ==
[~2020-06-16] MED LIST changes: -CATHETER FLUSH 10 ML SYR IV PRN
--- NOTE | 2020-06-16 12:39 | Diagnostic Imaging Report ---
EXAMINATION: CT Chest without contrast. TECHNIQUE: Multiple contiguous axial images were obtained through the chest without the use of intravenous contrast. All CT scans use one or more of the following dose optimizing techniques: automated exposure control, MA and/or KvP adjustment based on a patient size and exam type, or iterative reconstruction. HISTORY: Other disorders of lung. COMPARISON: CT chest 10/19/2019. FINDINGS: Thyroid: The thyroid is normal. Mediastinum: Heart size is normal without significant pericardial effusion. Calcifications of the aorta and coronary vessels. Thoracic aorta is normal in caliber. No suspicious lymphadenopathy. Lungs and airways: There is increasing subpleural groundglass opacification within the right upper lobe (series 3 image 36). Stable scattered areas of linear atelectasis or scarring within both lungs. Mild emphysematous changes. Stable calcified granuloma within the left upper lobe. Additional calcified granulomas are unchanged. No new suspicious pulmonary nodule. No pleural effusion or pneumothorax. The airways are normal. Upper abdomen: Hepatic steatosis. Musculoskeletal: Degenerative changes of the spine without suspicious osseous lesion or compression fracture. IMPRESSION: 1. Slight increase within the subpleural groundglass reticulation involving the right upper and middle lobes compared to 10/19/2019. This finding could be seen with developing interstitial lung disease or fibrosis. Differential consideration would include atypical infection. 2. No other acute abnormality in the chest. 3. Stable scattered calcified granulomas throughout both lungs. Dictated by: Dictated on workstation # [id number]
== END ==
LOC: RAD 11:15
PROVIDERS: ATTEND Nurse Practitioner Family
DX: J98.4 Other disorders of lung (principal)
CPT/HCPCS: 71250

== ENCOUNTER → 2020-10-05 | Outpatient (CLI) | payer MEDICARE ==
[~2020-10-05] MED LIST changes: +MONT10TA32; +MONT10TA32 PO; -MONT10TA97; -MONT10TA97 PO
--- NOTE | 2020-10-05 13:42 | Diagnostic Imaging Report ---
EXAMINATION: CT chest without contrast. TECHNIQUE: Multiple contiguous axial images were obtained through the chest without the use of intravenous contrast. All CT scans use one or more of the following dose optimizing techniques: automated exposure control, MA and/or KvP adjustment based on patient size and exam type or iterative reconstruction. HISTORY: Disorder of lung. COMPARISON: CT chest 06/16/2020. FINDINGS: Thyroid: The thyroid is normal. Mediastinum: The heart size is normal with a small pericardial effusion. Calcifications of the aorta and coronary vessels. Thoracic aorta is normal in caliber. No suspicious lymphadenopathy. Lungs and airways: The lungs are clear without consolidation, pleural effusion, or pneumothorax. There are numerous scattered calcified granulomas throughout the lungs. There is minimal groundglass within the subpleural left upper lobe. Overall, the degree of subpleural groundglass reticulation has significantly decreased from 06/16/2020. There continues to be linear atelectasis or scarring within the lung bases. The airways are normal. Upper abdomen: Hepatic steatosis. Cholecystectomy. Musculoskeletal: Degenerative changes of the spine without suspicious osseous lesion or compression fracture. IMPRESSION: 1. Decreased subpleural reticulation and groundglass compared to 06/16/2020. The findings favor an infectious process given the interval improvement. 2. No other acute abnormality in the chest. Dictated by: Dictated on workstation # [id number]
== END ==
LOC: RAD 12:58
PROVIDERS: ATTEND Nurse Practitioner Family
DX: J98.4 Other disorders of lung (principal)
CPT/HCPCS: 71250

== ENCOUNTER 2021-02-28 10:45 | Outpatient (RCR) | payer MEDICARE | END 2021-03-01 | disposition home or self-care (01) | PROVIDERS: ATTEND Nurse Practitioner Family | DX: R94.2 Abnormal results of pulmonary function studies (principal); I10 Essential (primary) hypertension; J45.909 Unspecified asthma, uncomplicated ==

== ENCOUNTER 2021-03-12 14:33 | Outpatient (RCR) | payer MEDICARE | END 2021-03-27 10:56 | disposition home or self-care (01) | PROVIDERS: ATTEND Nurse Practitioner Family | DX: R94.2 Abnormal results of pulmonary function studies (principal); J44.9 Chronic obstructive pulmonary disease, unspecified; Z87.891 Personal history of nicotine dependence; Z99.89 Dependence on other enabling machines and devices; M48.062 Spinal stenosis, lumbar region with neurogenic claudication; I10 Essential (primary) hypertension ==

== ENCOUNTER → 2022-08-05 | Outpatient (CLI) | payer MEDICARE ==
[~2022-08-05] MED LIST changes: +ALBU8.5H6 IH; +BUPR-105 PO; -BUPR150T14 PO; +MONT-40; +MONT-40 PO; -MONT10TA32; -MONT10TA32 PO; -RT-ALBUINH IH
== END ==
LOC: CARD 09:43
PROVIDERS: ATTEND Nurse Practitioner Family
DX: I51.9 Heart disease, unspecified (principal)
CPT/HCPCS: 93306